=== PATIENT | female | born 1985 | race Caucasian/White ===

== ENCOUNTER → 2025-07-13 09:26 | Outpatient (BNVA) | payer OTHER, SELFPAY | PROVIDERS: PCP Registered Nurse; Visit Provider Emergency Medicine | DX: S50.872A Other superficial bite of left forearm, initial encounter (principal); W50.3XXA Accidental bite by another person, initial encounter; Z02.79 Encounter for issue of other medical certificate | CPT/HCPCS: 99202 ==